=== PATIENT | female | born 1945 | race Caucasian/White ===

== ENCOUNTER 2018-11-24 23:30 | Emergency (ER) | payer BC, MEDICARE ==
[2018-11-25] MEDS ORDERED: Albuterol/Ipratropium 3.0-0.5 MG/3 ML Neb Soln NEB ONE (00:22)
[2018-11-25] MEDS ORDERED: Acetaminophen/HYDROcodone 325-5 MG Tab PO ONE (00:23)
--- NOTE | 2018-11-25 00:38 | EDM.PDOC ---
ED HPI GENERAL MEDICAL PROBLEM - General Chief Complaint: Respiratory Problem Stated Complaint: BREATHING DIFFICULTS Time Seen by Provider: 11/25/18 00:15 Source of Information: Reports: Patient, Family, RN History Limitations: Reports: No Limitations - History of Present Illness INITIAL COMMENTS - FREE TEXT/NARRATIVE: 73 yo female on home oxygen at 2 liters/min presents with a non-productive cough and SOB when she coughs. Has some L sided chest pains intermittently not related to coughing. No fever. Not eating or drinking as well today as normal due to no appetite. Had pulmonary fxn testing yesterday and she says this always wears her out. Is visiting from out of town. Has chronic hyponatremia per family. Takes salt tablets twice daily for this. Onset: Gradual Onset Date: 11/24/18 Duration: Day(s): (1), Getting Worse Location: Reports: Chest Quality: Reports: Ache Severity: Moderate Improves with: Reports: None Worsens with: Reports: Other (unknown) Context: Reports: Other (See HPI) Associated Symptoms: Reports: Chest Pain, Cough, Shortness of Breath (with coughing only). 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 Pain Score (Numeric/FACES): 8 - Related Data Allergies Allergy/AdvReac Type Severity Reaction Status Date / Time No Known Allergies Allergy Verified 11/25/18 00:20 Home Meds: Home Meds Albuterol [Proventil HFA] 2 puff INH Q4H PRN 11/25/18 [History] Calcium Carbonate 500 mg PO DAILY 11/25/18 [History] Cholecalciferol (Vitamin D3) [Vitamin D3] 5,000 unit PO DAILY 11/25/18 [History] Fluticasone Propionate [Flonase] 50 mcg NASBOTH DAILY 11/25/18 [History] Folic Acid 1 mg PO DAILY 11/25/18 [History] Latanoprost [Xalatan 0.005% Ophth Soln] 1 drop EYERT BEDTIME 11/25/18 [History] Lisinopril [Prinivil] 10 mg PO DAILY 11/25/18 [History] Metoprolol Succinate [Toprol XL 100mg] 100 mg PO DAILY 11/25/18 [History] Mometasone Furoate [Elocon 0.1% Crm] 1 applic TOP BEDTIME 11/25/18 [History] Salmeterol Xinafoate [Serevent Diskus] 1 puff INH Q12H 11/25/18 [History] Sodium Chloride 500 mg PO BID 11/25/18 [History] Tiotropium [place] [Spiriva Respimat] 2.5 mcg IH DAILY 11/25/18 [History] metFORMIN [Glucophage] 500 mg PO DAILY 11/25/18 [History] Social & Family History - Tobacco Use Smoking Status *Q: Former Smoker Used Tobacco, but Quit: Yes Month/Year Tobacco Last Used: 2015 - Caffeine Use Caffeine Use: Reports: Coffee, Soda - Alcohol Use Days Per Week of Alcohol Use: 7 Number of Drinks Per Day: 3 Total Drinks Per Week: 21 - Recreational Drug Use Recreational Drug Use: No ED ROS GENERAL - Review of Systems Review Of Systems: See Below Constitutional: Reports: Malaise, Fatigue HEENT: Reports: No Symptoms Respiratory: Reports: Shortness of Breath, Cough. Denies: Wheezing, Pleuritic Chest Pain, Sputum, Hemoptysis Cardiovascular: Reports: Chest Pain (fleeting, intermittent L sided chest pains) Endocrine: Reports: Fatigue GI/Abdominal: Reports: Anorexia : Reports: No Symptoms Musculoskeletal: Reports: No Symptoms Skin: Reports: No Symptoms Neurological: Reports: No Symptoms Psychiatric: Reports: No Symptoms ED EXAM, GENERAL - Physical Exam Exam: See Below Exam Limited By: No Limitations General Appearance: Alert, WD/WN, No Apparent Distress Eye Exam: Bilateral Eye: Normal Inspection Ears: Normal External Exam, Normal Canal, Hearing Grossly Normal, Normal TMs Ear Exam: Bilateral Ear: Auricle Normal, Canal Normal, TM normal Nose: Normal Inspection, No Blood Throat/Mouth: Normal Inspection, Normal Lips, Normal Oropharynx, Normal Voice, No Airway Compromise Head: Atraumatic, Normocephalic Neck: Normal Inspection Respiratory/Chest: No Respiratory Distress, No Accessory Muscle Use, Decreased Breath Sounds. No: Crackles, Rales, Rhonchi, Wheezing Cardiovascular: Regular Rate, Rhythm, No Edema GI/Abdominal: Normal Bowel Sounds, Soft, Non-Tender, No Distention Extremities: Normal Inspection, Normal Range of Motion, Non-Tender, No Pedal Edema Neurological: Alert, Oriented, CN II-XII Intact, Normal Cognition, No Motor/ Sensory Deficits Psychiatric: Normal Affect, Normal Mood Skin Exam: Warm, Dry, Intact, Normal Color, No Rash Course - Vital Signs Last Recorded V/S: Last Vital Signs Temp 36.1 C 11/25/18 00:06 Pulse 80 11/25/18 02:27 Resp 20 11/25/18 02:27 BP 156/60 H 11/25/18 02:27 Pulse Ox 95 11/25/18 02:27 - Orders/Labs/Meds Orders: Active Orders 24 hr Category Date Time Status RT Aerosol Therapy [RC] ASDIRECTED Care 11/25/18 00:22 Active Azithromycin [Zithromax] Med 11/25/18 03:12 Once 500 mg PO ONETIME ONE Sodium Chloride 0.9% [Normal Saline] 1,000 ml Med 11/25/18 01:30 Active IV ASDIRECTED Medication Orders Sodium Chloride (Normal Saline) 1,000 mls @ 150 mls/hr IV ASDIRECTED JAHAIRA Last Admin: 11/25/18 01:36 Dose: 150 mls/hr Labs: Laboratory Tests 11/25/18 11/25/18 11/25/18 Range/Units 00:21 00:21 00:56 WBC 16.0 H (4.5-11.0) K/uL RBC 4.54 (3.30-5.50) M/uL Hgb 14.0 (12.0-15.0) g/dL Hct 40.0 (36.0-48.0) % MCV 88 (80-98) fL MCH 31 (27-31) pg MCHC 35 (32-36) % Plt Count 326 (150-400) K/uL Sodium 115 L* (140-148) mmol/L Potassium 4.0 (3.6-5.2) mmol/L Chloride 79 L (100-108) mmol/L Carbon Dioxide 31 (21-32) mmol/L Anion Gap 9.0 (5.0-14.0) mmol/L BUN 8 (7-18) mg/dL Creatinine 0.5 L (0.6-1.0) mg/dL Est Cr Clr Drug Dosing 72.83 mL/min Estimated GFR (MDRD) > 60 (>60) Glucose 154 H (74-106) mg/dL Calcium 8.9 (8.5-10.1) mg/dL Troponin I < 0.017 (0.000-0.056) ng/mL C-Reactive Protein 0.50 H (0.0-0.3) mg/dL Urine Color Urine Appearance Urine pH (4.5-8.0) Ur Specific [place] (1.008-1.030) Urine Protein (NEGATIVE) mg/dL Urine Glucose (UA) (NEGATIVE) mg/dL Urine Ketones (NEGATIVE) mg/dL Urine Occult Blood (NEGATIVE) Urine Nitrite (NEGATIVE) Urine Bilirubin (NEGATIVE) Urine Urobilinogen (NORMAL) mg/dL Ur Leukocyte Esterase (NEGATIVE) Urine RBC (0-5) Urine WBC (0-5) Ur Epithelial Cells Amorphous Sediment Urine Bacteria Urine Mucus 11/25/18 Range/Units 02:48 WBC (4.5-11.0) K/uL RBC (3.30-5.50) M/uL Hgb (12.0-15.0) g/dL Hct (36.0-48.0) % MCV (80-98) fL MCH (27-31) pg MCHC (32-36) % Plt Count (150-400) K/uL Sodium (140-148) mmol/L Potassium (3.6-5.2) mmol/L Chloride (100-108) mmol/L Carbon Dioxide (21-32) mmol/L Anion Gap (5.0-14.0) mmol/L BUN (7-18) mg/dL Creatinine (0.6-1.0) mg/dL Est Cr Clr Drug Dosing mL/min Estimated GFR (MDRD) (>60) Glucose (74-106) mg/dL Calcium (8.5-10.1) mg/dL Troponin I (0.000-0.056) ng/mL C-Reactive Protein (0.0-0.3) mg/dL Urine Color Yellow Urine Appearance Cloudy Urine pH 6.0 (4.5-8.0) Ur Specific [place] 1.015 (1.008-1.030) Urine Protein 30 H (NEGATIVE) mg/dL Urine Glucose (UA) 250 H (NEGATIVE) mg/dL Urine Ketones 50 H (NEGATIVE) mg/dL Urine Occult Blood Trace (NEGATIVE) Urine Nitrite Negative (NEGATIVE) Urine Bilirubin Moderate (NEGATIVE) Urine Urobilinogen 4 (NORMAL) mg/dL Ur Leukocyte Esterase Moderate (NEGATIVE) Urine RBC 0-5 (0-5) Urine WBC 10-20 H (0-5) Ur Epithelial Cells Few Amorphous Sediment Few Urine Bacteria Few Urine Mucus Moderate Meds: Medications Generic Name Dose Route Start Last Admin Trade Name Freq PRN Reason Stop Dose Admin Sodium Chloride 1,000 mls @ 150 mls/hr 11/25/18 01:30 11/25/18 01:36 Normal Saline IV 150 mls/hr ASDIRECTED JAHAIRA Administration Discontinued Medications Generic Name Dose Route Start Last Admin Trade Name Freq PRN Reason Stop Dose Admin Hydrocodone Bitart/Acetaminophen 1 tab 11/25/18 00:23 11/25/18 00:31 [place] 325-5 Mg PO 11/25/18 00:24 1 tab ONETIME ONE Administration Albuterol/Ipratropium 3 ml 11/25/18 00:22 11/25/18 00:32 Duoneb 3.0-0.5 Mg/3 Ml NEB 11/25/18 00:23 3 ml ONETIME ONE Administration - Radiology Interpretation Free Text/Narrative:: CXR- Departure - Departure Time of Disposition: 03:15 Disposition: Home, Self-Care 01 Condition: Fair Clinical Impression: Chronic hyponatremia, Cough - Discharge Information *PRESCRIPTION DRUG MONITORING PROGRAM REVIEWED*: No *COPY OF PRESCRIPTION DRUG MONITORING REPORT IN PATIENT SMITA: No Instructions: Cough, Adult, [id number], Hyponatremia, [id number] Referrals: Na Montalvo MD [Primary Care Provider] - Forms: ED Department Discharge Additional Instructions: Take Azithromycin 250 mg every 24 hrs for 4 more doses. Take [place] 1 every 4 hrs prn. Continue usual meds. Recheck on Tuesday, return here if worse in the interim. - My Orders Last 24 Hours: My Active Orders 11/25/18 00:22 RT Aerosol Therapy [RC] ASDIRECTED 11/25/18 01:30 Sodium Chloride 0.9% [Normal Saline] 1,000 ml IV ASDIRECTED 11/25/18 03:12 Azithromycin [Zithromax] 500 mg PO ONETIME ONE - Assessment/Plan Last 24 Hours: My Active Orders 11/25/18 00:22 RT Aerosol Therapy [RC] ASDIRECTED 11/25/18 01:30 Sodium Chloride 0.9% [Normal Saline] 1,000 ml IV ASDIRECTED 11/25/18 03:12 Azithromycin [Zithromax] 500 mg PO ONETIME ONE
--- NOTE | 2018-11-25 01:09 | CRLCR ---
INDICATION: Cough, chest pain TECHNIQUE: Chest radiograph 2 views COMPARISON: None FINDINGS: Mediastinum: The mediastinum is normal in appearance. The heart silhouette is normal in size and morphology. Lung: Bilateral pulmonary hyperinflation and lucency noted, suggestive of severe pulmonary emphysema. There is a 4 mm nodule present any left lung zone. No sign of pleural effusion seen. No pneumothorax is identified. Musculoskeletal: Mild chronic appearing compression deformity seen along the inferior endplate of T8. IMPRESSIONS: 1. Bilateral pulmonary hyperinflation and lucency noted, suggestive of severe pulmonary emphysema. 2. There is a 4 mm nodule present any left lung zone. Comparison with any prior outside imaging is recommended. If these cannot be obtained, follow up chest radiograph in 3 months is warranted to document stability. Dictated by Adonis Dawson MD @ 11/25/2018 1:07:57 AM Dictated by: Adonis Dawson MD @ 11/25/2018 01:08:01 (Electronically Signed)
[2018-11-25] MEDS ORDERED: Sodium Chloride 0.9% 1,000 ML IV SCH (01:30)
[2018-11-25] MEDS ORDERED: Azithromycin 250 MG Tab PO ONE (03:12)
== END 2018-11-25 03:35 | disposition home or self-care (01) ==
LOC: JP.ED 23:30
DX: E87.1 Hypo-osmolality and hyponatremia (principal); R05 Cough; Z79.84 Long term (current) use of oral hypoglycemic drugs; Z79.899 Other long term (current) drug therapy; Z87.891 Personal history of nicotine dependence
CPT/HCPCS: 36415; 71046; 80048; 81001; 84484; 85027; 86140; 94640; 96360; 99285; A9270; J7030; J7620-GY

== ENCOUNTER 2019-09-05 21:05 | Emergency (ER) | payer MEDICARE ==
[2019-09-05] MEDS ORDERED: Albuterol/Ipratropium 3.0-0.5 MG/3 ML Neb Soln NEB ONE (22:15)
--- NOTE | 2019-09-05 22:18 | EDM.PDOC ---
ED HPI GENERAL MEDICAL PROBLEM - General Chief Complaint: Respiratory Problem Stated Complaint: SOB Time Seen by Provider: 09/05/19 22:07 Source of Information: Reports: Patient, Family, RN Notes Reviewed History Limitations: Reports: No Limitations - History of Present Illness INITIAL COMMENTS - FREE TEXT/NARRATIVE: 74-year-old female presents emergency department a complaint of shortness of breath, she has known history of COPD with adenocarcinoma due to her lung function she is only a candidate for radiation therapy has been several months since she went through radiation treatment. She states over the last 3 weeks she is been progressively more short of breath she was evaluated by her primary care end of July treated with a Z-[place] she states it did not help much over the last 24 to 48 hours it has progressively gotten worse. She is normally oxygen dependent however in the assisted living center they found her to be oxygen saturation in the 70s and was sent to the emergency department for further evaluation. 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 Pain Score (Numeric/FACES): 4 - Related Data Allergies Allergy/AdvReac Type Severity Reaction Status Date / Time No Known Allergies Allergy Verified 11/25/18 00:20 Home Meds: Home Meds Albuterol [Proventil HFA] 2 puff INH Q4H PRN 11/25/18 [History] Calcium Carbonate 500 mg PO DAILY 11/25/18 [History] Cholecalciferol (Vitamin D3) [Vitamin D3] 5,000 unit PO DAILY 11/25/18 [History] Fluticasone Propionate [Flonase] 50 mcg NASBOTH DAILY 11/25/18 [History] Folic Acid 1 mg PO DAILY 11/25/18 [History] Latanoprost [Xalatan 0.005% Ophth Soln] 1 drop EYERT BEDTIME 11/25/18 [History] Metoprolol Succinate [Toprol XL 100mg] 100 mg PO DAILY 11/25/18 [History] Mometasone Furoate [Elocon 0.1% Crm] 1 applic TOP BEDTIME 11/25/18 [History] Salmeterol Xinafoate [Serevent Diskus] 1 puff INH Q12H 11/25/18 [History] Sodium Chloride 500 mg PO BID 11/25/18 [History] Tiotropium [place] [Spiriva Respimat] 2.5 mcg IH DAILY 11/25/18 [History] lisinopriL [Prinivil] 10 mg PO DAILY 11/25/18 [History] metFORMIN [Glucophage] 500 mg PO DAILY 11/25/18 [History] Albuterol/Ipratropium [DuoNeb 3.0-0.5 MG/3 ML] 3 ml .XX Q2H #90 neb 09/05/19 [Rx ] predniSONE [Prednisone] 20 mg PO TID #5 tablet 09/05/19 [Rx] Past Medical History HEENT History: Reports: Glaucoma Cardiovascular History: Reports: Hypertension Respiratory History: Reports: 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 - Infectious Disease History Infectious Disease History: Reports: Chicken Pox - Past Surgical History Oncologic Surgical History: Reports: Other (See Below) Social & Family History - Tobacco Use Smoking Status *Q: Former Smoker Used Tobacco, but Quit: Yes Month/Year Tobacco Last Used: october - Caffeine Use Caffeine Use: Reports: Coffee - Recreational Drug Use Recreational Drug Use: No ED ROS GENERAL - Review of Systems Review Of Systems: See Below Constitutional: Denies: Fever, Chills HEENT: Reports: No Symptoms Respiratory: Reports: Shortness of Breath, Cough. Denies: Sputum Cardiovascular: Reports: Dyspnea on Exertion GI/Abdominal: Reports: No Symptoms : Reports: No Symptoms ED EXAM, GENERAL - Physical Exam Exam: See Below Exam Limited By: No Limitations General Appearance: Alert, Mild Distress, Other (Tripoding 4 and 5 word sentences) Head: Atraumatic, Normocephalic Neck: Normal Inspection, Supple, Non-Tender, Full Range of Motion Respiratory/Chest: Decreased Breath Sounds, Accessory Muscle Use. No: Rales, Rhonchi, Wheezing Cardiovascular: Regular Rate, Rhythm, No Murmur GI/Abdominal: Soft, Non-Tender Extremities: Normal Inspection, Non-Tender, No Pedal Edema, Pedal Edema Course - Vital Signs Last Recorded V/S: Last Vital Signs Temp 97.7 F 09/05/19 21:58 Pulse 74 09/05/19 21:58 Resp 18 09/05/19 21:58 BP 132/65 09/05/19 21:58 Pulse Ox 97 09/05/19 21:58 - Orders/Labs/Meds Orders: Active Orders 24 hr Category Date Time Status RT Aerosol Therapy [RC] ASDIRECTED Care 09/05/19 22:15 Active Chest 2V [CR] Urgent Exams 09/05/19 22:15 Taken Labs: Laboratory Tests 09/05/19 09/05/19 09/05/19 Range/Units 22:25 22:25 22:25 WBC 7.5 (4.5-11.0) K/uL RBC 4.36 (3.30-5.50) M/uL Hgb 13.1 (12.0-15.0) g/dL Hct 39.4 (36.0-48.0) % MCV 90 (80-98) fL MCH 30 (27-31) pg MCHC 33 (32-36) % Plt Count 390 (150-400) K/uL Neut % (Auto) 71 H (36-66) % Lymph % (Auto) 9 L (24-44) % [place] % (Auto) 15 H (2-6) % Eos % (Auto) 5 H (2-4) % Baso % (Auto) 1 (0-1) % D-Dimer, Quantitative 238 (0.0-400.0) ng/mL Sodium 122 L (140-148) mmol/L Potassium 4.7 (3.6-5.2) mmol/L Chloride 83 L (100-108) mmol/L Carbon Dioxide 34 H (21-32) mmol/L Anion Gap 9.7 (5.0-14.0) mmol/L BUN 11 (7-18) mg/dL Creatinine 0.6 (0.6-1.0) mg/dL Est Cr Clr Drug Dosing 59.80 mL/min Estimated GFR (MDRD) > 60 (>60) Glucose 147 H (74-106) mg/dL Calcium 8.9 (8.5-10.1) mg/dL Total Bilirubin 0.4 (0.2-1.0) mg/dL AST 16 (15-37) U/L ALT 20 (12-78) U/L Alkaline Phosphatase 130 H (46-116) U/L Troponin I < 0.017 (0.000-0.056) ng/mL Total Protein 6.9 (6.4-8.2) g/dL Albumin 3.6 (3.4-5.0) g/dL Globulin 3.3 (2.3-3.5) g/dL Albumin/Globulin Ratio 1.1 L (1.2-2.2) Meds: Medications Discontinued Medications Generic Name Dose Route Start Last Admin Trade Name Kate PRN Reason Stop Dose Admin Albuterol/Ipratropium 3 ml 09/05/19 22:15 09/05/19 22:20 Duoneb 3.0-0.5 Mg/3 Ml NEB 09/05/19 22:16 3 ml ONETIME ONE Administration Departure - Departure Time of Disposition: 23:37 Disposition: Home, Self-Care 01 Condition: Poor Clinical Impression: COPD exacerbation - Discharge Information Instructions: Chronic Obstructive Pulmonary Disease Exacerbation, [id number] Referrals: Terrell Ochoa MD [Primary Care Provider] - Forms: ED Department Discharge Additional Instructions: Try the prednisone 20 mg once a day for the next 5 days, try the albuterol in combination with ipratropium which is the DuoNeb as needed for shortness of breath please follow-up with your primary care in the next 3 to 5 days for reevaluation, be mindful that the prednisone will elevate your blood sugars Sepsis Event Note - Evaluation Sepsis Screening Result: No Definite Risk - Focused Exam Vital Signs: Vital Signs Temp Pulse Resp BP Pulse Ox 09/05/19 21:58 97.7 F 74 18 132/65 97 09/05/19 21:35 98.0 F 75 24 H 134/65 97 Date Exam was Performed: 09/05/19 Time Exam was Performed: 23:34 - My Orders Last 24 Hours: My Active Orders 09/05/19 22:15 RT Aerosol Therapy [RC] ASDIRECTED Chest 2V [CR] Urgent - Assessment/Plan Last 24 Hours: My Active Orders 09/05/19 22:15 RT Aerosol Therapy [RC] ASDIRECTED Chest 2V [CR] Urgent Plan: Assessment Acuity = acute Site and laterality = COPD exacerbation Etiology = unknown Manifestations = dyspnea Location of injury = Home Lab values = CBC unremarkable d-dimer within normal notes 238 sodium low at 122 consistent with chronic hyponatremia troponin was negative chest x-ray I did review films myself I cannot appreciate any acute process, the official read from radiology is pending Plan Plan is to try a short course of prednisone 20 mg once a day for 5 days also prescription for DuoNeb and neb machine and supplies have her follow-up with her primary care in the next 3 to 5 days for reevaluation This note was dictated using [employer] voice recognition software please call with any questions on syntax or grammar.
--- NOTE | 2019-09-06 09:54 | CR ---
CHEST: 2 view CLINICAL HISTORY:SOB COMPARISON:November 2018 FINDINGS: Heart size and pulmonary vascularity are normal. Lung hastings are hyperaerated but clear. No infiltrates are seen. There are no pleural effusions. There are compression deformities of midthoracic vertebrae which have increased since the prior study. Impression: Emphysematous changes No acute cardio pelvic process Compression fractures of mid thoracic vertebrae increased since prior study
== END 2019-09-05 23:54 | disposition home or self-care (01) ==
LOC: JP.ED 21:05
DX: J44.1 Chronic obstructive pulmonary disease with (acute) exacerbation (principal); I10 Essential (primary) hypertension; E11.9 Type 2 diabetes mellitus without complications; Z79.899 Other long term (current) drug therapy; Z79.84 Long term (current) use of oral hypoglycemic drugs; Z87.891 Personal history of nicotine dependence
CPT/HCPCS: 36415; 71046; 71046-26; 80053; 84484; 85025; 85379; 94640; 99284; 99285-25; J7620-GY